=== PATIENT | female | born 1980 | race Two or more races ===

== ENCOUNTER 2024-01-02 11:49 | Emergency (ER) | payer OTHER ==
[~2024-01-02] VITALS: Ht 157.5 cm; Wt 63.5 kg
[2024-01-02] MEDS ORDERED: KETOROLAC TROMETHAMINE 30 MG VIAL IM STA (14:06)
[2024-01-02] MEDS ORDERED: CEFTRIAXONE SODIUM 1,000 MG VIAL IM STA (14:06)
== END 2024-01-02 14:27 | disposition home or self-care (01) ==
LOC: ER 11:51
DX: J03.90 Acute tonsillitis, unspecified (principal)